=== PATIENT | male | born 1975 | race Two or more races ===

== ENCOUNTER 2022-07-26 18:24 | Emergency (ER) | payer OTHER ==
[~2022-07-26] VITALS: Ht 177.8 cm; Wt 90.7 kg
[2022-07-26] MEDS ORDERED: CLONAZEPAM2 MG PO (18:52)
== END 2022-07-26 23:36 | disposition home or self-care (01) ==
LOC: ER 18:24
DX: K62.5 Hemorrhage of anus and rectum (principal); K80.20 Calculus of gallbladder without cholecystitis without obstruction; F32.89 Other specified depressive episodes